=== PATIENT | female | born 1950 | race Caucasian/White ===

== ENCOUNTER → 2017-07-04 | Outpatient (CLI) | payer MEDICARE ==
[~2017-07-04] MED LIST: COZAAR100 MG PO; HYZAAR 50-12.1 UDTAB PO; INSLANT; JANUMET 500 MG-1 TA1; LIPITOR 40MG TA40 MG PO
== END ==
LOC: COL.RAD 07:42
DX: C20 Malignant neoplasm of rectum (principal); C22.9 Malignant neoplasm of liver, not specified as primary or secondary; K76.89 Other specified diseases of liver
CPT/HCPCS: A9585

== ENCOUNTER → 2017-10-03 | Outpatient (CLI) | payer MEDICARE | LOC: MC.RAD 08:10 | DX: Z12.31 Encounter for screening mammogram for malignant neoplasm of breast (principal) ==

== ENCOUNTER → 2018-09-16 | Outpatient (CLI) | payer MEDICARE | LOC: MC.RAD 08:40 | DX: Z12.31 Encounter for screening mammogram for malignant neoplasm of breast (principal) ==

== ENCOUNTER → 2018-10-09 | Outpatient (CLI) | payer MEDICARE | LOC: MC.RAD 09:06 | DX: Z12.31 Encounter for screening mammogram for malignant neoplasm of breast (principal) ==

== ENCOUNTER → 2019-11-30 | Outpatient (CLI) | payer MEDICARE | LOC: MC.RAD 11:26 | DX: Z12.31 Encounter for screening mammogram for malignant neoplasm of breast (principal) ==

== ENCOUNTER → 2020-03-08 | Outpatient (CLI) | payer MEDICARE | LOC: COL.RAD 08:22 | DX: C20 Malignant neoplasm of rectum (principal); R91.8 Other nonspecific abnormal finding of lung field | CPT/HCPCS: Q9967 ==

== ENCOUNTER → 2020-07-01 | Outpatient (CLI) | payer MEDICARE | LOC: COL.RAD 09:48 | DX: C20 Malignant neoplasm of rectum (principal); R51 Headache; R20.2 Paresthesia of skin | CPT/HCPCS: A9585 ==

== ENCOUNTER 2020-12-16 14:57 | Inpatient (IN) | payer MEDICARE ==
[~2020-12-16] VITALS: Ht 167.6 cm; Wt 80.0 kg
[2020-12-16] MEDS ORDERED: NORVASC 5MG5 MG/TAB PO (15:22)
[2020-12-16] MEDS ORDERED: HCTZ12.5TAB PO (15:22)
[2020-12-16] MEDS ORDERED: GLUCOPHAGE850 MG/TAB PO (15:23)
[2020-12-16] MEDS ORDERED: LIPITOR 10MG10 MG PO (15:23)
[2020-12-16] MEDS ORDERED: AVAPRO TAB150 MG/TAB PO (15:24)
[2020-12-16] MEDS ORDERED: ZOFRAN ODT8 MG PO (15:24)
[2020-12-16] MEDS ORDERED: NORCO 325 MG-51 TAB PO (15:24)
[2020-12-16] MEDS ORDERED: MAG-OX 400400 MG/TAB PO (15:25)
[2020-12-16] MEDS ORDERED: DOXYCYCLINE 10100 MG PO (15:26)
[2020-12-16 15:50] LABS: COLLECTION METHOD CLEAN CATCH
[2020-12-16 15:55] LABS: BASO % 0.1 % (0.0-2.0); GRAN # 11.3 (1.4-6.5); GRAN % 84.1 % (42.2-75.2); HEMOGLOBIN 12.2 g/dl (12.5-16.0); LYMPH % 7.7 % (20.0-51.0); MEAN CELL VOLUME 87 fl (80.0-100.0); MEAN CORPUSCULAR HEMOGLOBIN 29 pg (27.0-31.0); MEAN CORPUSCULAR HGB CONC 33 g/dl (33.0-37.0); MEAN PLATELET VOLUME 9.4 fl (7.4-10.4); MONO # 0.9 (0.1-0.6); PLATELET COUNT 282 K/mm3 (130-400); RED BLOOD COUNT 4.24 M/mm3 (4.10-5.30); REDCELL DISTRIBUTION WIDTH-CV 13.8 % (11.5-14.5)
[2020-12-16 15:56] LABS: HEMATOCRIT 36.9 % (37.0-47.0)
[2020-12-16 16:07] LABS: MUCOUS Present /lpf; PH 5 (5-8); SQUAMOUS EPITHELIAL 0-2 /hpf; URINE APPEARANCE Hazy; URINE BACTERIA None Seen /hpf; URINE BILIRUBIN Negative (NEGATIVE); URINE BLOOD 1+ (NEGATIVE); URINE COLOR Yellow; URINE GLUCOSE 2+ (NEGATIVE); URINE KETONE 1+ (NEGATIVE); URINE LEUKOCYTE ESTERASE Trace (NEGATIVE); URINE NITRATE Negative (NEGATIVE); URINE PROTEIN(semi-quant) 2+ (NEGATIVE); URINE UROBILINOGEN Negative (NEGATIVE)
[2020-12-16 16:14] LABS: ALANINE AMINOTRANSFERASE 17 U/L (4-34); ALBUMIN 3.7 gm/dL (3.5-5.0); ALKALINE PHOSPHATASE 119 U/L (50-136); ANION GAP 7 mmol/L (7-16); AST,SGOT 28 U/L (15-37); BLOOD UREA NITROGEN 29 mg/dL (7-17); CALCIUM 8.9 mg/dL (8.4-10.2); CARBON DIOXIDE 29 mmol/L (22-30); CHLORIDE 98 mmol/L (98-107); CREATININE, serum 0.73 (0.52-1.25); GLUCOSE 184 mg/dL (74-106); LIPASE 48 U/L (23-300); POTASSIUM 3.9 mmol/L (3.4-5.0); SODIUM 133 mmol/L (137-145); TOTAL PROTEIN 6.4 gm/dL (6.4-8.2)
[2020-12-16 16:15] LABS: C-REACTIVE PROTEIN < 0.5 mg/dL (0.0-0.9)
--- NOTE | 2020-12-16 18:30 | NUR ---
PT ASMITTED TO ROOM 342 FROM ER. REPORT PROVIDE FROM KAYLEE MCKOY RN. PT ORIENTED TO ROOM. REVIEWED PLAN OF CARE. PT RESTING IN BED. TRANSIENT NAUSEA. STARTED NS TO IV RT AC AT 100CC/HR. HAD NAUSEA THEN VOMITED. FELT RELIEF. ABD SOFT VERY HYPOACTIVE BS. CALL LIGHT IN REACH.
--- NOTE | 2020-12-16 19:54 | NUR ---
VOMITED MOD AMT EMESIS. GAVE ZOFRAN. STARTED NS AT 100CC.
[2020-12-16 20:17] VITALS: BP 156/62; PULSE 65; TEMP 98
[2020-12-16 23:21] VITALS: BP 162/64; PULSE 60; TEMP 98.5
--- NOTE | 2020-12-16 23:36 | NUR ---
BP 160 SYS. NO APRESOLINE NEEDED AT THIS TIME.
--- NOTE | 2020-12-16 23:51 | NUR ---
PT VOMITED AGAIN. CLEANED UP PT. TOO SOON FOR ZOFRAN.
--- NOTE | 2020-12-17 00:40 | NUR ---
NEW ORDER FOR PHENERGAN IV. SEE MAR. GIVEN FOE UNRELIEVED N/V.
--- NOTE | 2020-12-17 01:45 | NUR ---
PT VOMITED AGAIN. DARK GREEN EMESIS SM AMT.
--- NOTE | 2020-12-17 02:18 | NUR ---
PT STILL HAVING TRANSIENT NAUSEA. TRYING TO SLEEP. STARTED MAGNESIUM REPLACEMENT ORDERED. MAG LEVEL EARLIER 1.2
[2020-12-17 03:31] VITALS: BP 143/54; PULSE 64; TEMP 97.6
[2020-12-17 06:53] LABS: BASO % 0.1 % (0.0-2.0); GRAN # 8.7 (1.4-6.5); GRAN % 86.2 % (42.2-75.2); HEMOGLOBIN 11.4 g/dl (12.5-16.0); LYMPH # 0.7 (1.2-3.4); LYMPH % 6.8 % (20.0-51.0); MEAN CELL VOLUME 87 fl (80.0-100.0); MEAN CORPUSCULAR HEMOGLOBIN 29 pg (27.0-31.0); MEAN CORPUSCULAR HGB CONC 33 g/dl (33.0-37.0); MEAN PLATELET VOLUME 9.9 fl (7.4-10.4); MONO # 0.6 (0.1-0.6); PLATELET COUNT 249 K/mm3 (130-400); RED BLOOD COUNT 3.96 M/mm3 (4.10-5.30); REDCELL DISTRIBUTION WIDTH-CV 13.7 % (11.5-14.5)
[2020-12-17 06:59] LABS: HEMATOCRIT 34.6 % (37.0-47.0)
[2020-12-17 07:07] LABS: ALBUMIN 3.4 gm/dL (3.5-5.0); BILIRUBIN,TOTAL 0.9 mg/dL (0.0-1.0); CALCIUM 8.3 mg/dL (8.4-10.2); CREATININE, serum 0.71 (0.52-1.25); MAGNESIUM 2.8 mg/dL (1.6-2.3); POTASSIUM 3.9 mmol/L (3.4-5.0); TOTAL PROTEIN 5.9 gm/dL (6.4-8.2)
[2020-12-17 07:12] VITALS: BP 147/55; PULSE 64; TEMP 97.6
--- NOTE | 2020-12-17 10:21 | NUR ---
PATRICIA met with patient to discuss discharge planning. Patient lives at home in [place] with Sarbjit (P# [phone] or [phone]). Sarbjit is patient's DPOA. Per patient report, Dr. Francois's office should have documentation. Patient's PCP is Dr. Francois, and she uses [facility] for pharmacy needs. Patient is independent with ADLS and requires no DME at this time. Plan is to return home with . Patient may need assistance after surgery and home health was discussed. Patient has not used home health in the past, and she would like to wait until after her surgery to decide if/where she would like services. Patient denies any questions or concerns at this time. Social work will continue to follow.
[2020-12-17 11:10] VITALS: BP 151/54; PULSE 83; TEMP 97.6
[2020-12-17 15:45] VITALS: BP 145/52; PULSE 64; TEMP 98.9
--- NOTE | 2020-12-17 17:43 | NUR ---
Patient has been doing well today. She slept most the day. No nauesa, denies pain. Still has not passed flatus or had a bowel movement. She got up to the shower this morning. No other changes at this time. Call light within reach.
[2020-12-17 19:24] VITALS: BP 154/56; PULSE 63; TEMP 98
--- NOTE | 2020-12-17 19:35 | NUR ---
PT RESTING IN BED WITH SEVERAL COVERS ON. NS INFUSING AT 100ML/HR THRU UPPER L CHEST PORT. REFUSES SCD'S. DENIES NAUSEA AT THIS TIME. ICE CHIPS IN CUP ON BEDSIDE TABLE. PT REPORTS TAKING CHIPS SLOWLY. PASSING NO GAS. CALL LIGHT IN REACH. BED ALARM ON.
--- NOTE | 2020-12-17 20:30 | NUR ---
PT RESTING QUIETLY IN BED. STATES SHE FELT A LITTLE NAUSEATED BUT KIND OF SUBSIDED. OFFERED ZOFRAN BUT WILL WAIT TO SEE IF IT WILL GO AWAY. NO OTHER C/O OFFERED. CALL LIGHT IN REACH.
--- NOTE | 2020-12-17 23:24 | NUR ---
PT RESTING SUPINE IN BED. STATES SHE HAD FELT A LITTLE NAUSEATED BUT SOME BETTER NOW. WILL CONTINUE TO MONITOR. CALL LIGHT AT SIDE.
[2020-12-18 00:02] VITALS: BP 150/59; PULSE 66; TEMP 98.7
[2020-12-18 03:45] VITALS: BP 161/60; PULSE 64; TEMP 98.8
--- NOTE | 2020-12-18 05:59 | NUR ---
PT UP TO BATHROOM WITH STAND BY ASSIST. TOLERATES WELL. DENIES ANY NAUSEA. UNSURE IF SHE IS PASSING MUCH GAS. BLOOD DRAWN FROM PORT FOR LAB. NO C/O OFFERED. CALL LIGHT IN REACH. BED ALARM ON. 6AM BLOOD SUGAR 142.
[2020-12-18 06:22] LABS: BASO % 0.1 % (0.0-2.0); GRAN # 5.9 (1.4-6.5); GRAN % 80.5 % (42.2-75.2); LYMPH # 0.9 (1.2-3.4); LYMPH % 12.1 % (20.0-51.0); MEAN CELL VOLUME 88 fl (80.0-100.0); MEAN CORPUSCULAR HGB CONC 33 g/dl (33.0-37.0); MONO # 0.5 (0.1-0.6); MONO % 6.3 % (1.7-9.3); PLATELET COUNT 221 K/mm3 (130-400); RED BLOOD COUNT 3.39 M/mm3 (4.10-5.30); REDCELL DISTRIBUTION WIDTH-CV 13.9 % (11.5-14.5)
[2020-12-18 06:29] LABS: HEMATOCRIT 29.9 % (37.0-47.0); HEMOGLOBIN 9.9 g/dl (12.5-16.0); MEAN CORPUSCULAR HEMOGLOBIN 29 pg (27.0-31.0)
[2020-12-18 06:31] LABS: CALCIUM 7.8 mg/dL (8.4-10.2); CREATININE, serum 0.65 (0.52-1.25); MAGNESIUM 1.6 mg/dL (1.6-2.3); POTASSIUM 3.5 mmol/L (3.4-5.0)
[2020-12-18 07:47] VITALS: BP 154/55; PULSE 59; TEMP 98
--- NOTE | 2020-12-18 08:00 | NUR ---
DR.DOERING CARTER, SEE ORDERS TO ADVANCE DIET TO CLEARS. PATIENT WAS DIRECTED TO TAKE IN LIQUIDS SLOW AND AMBULATE SEVERAL TIMES TODAY. HEAD TO TOE ASSESSMENT COMPLETE. ABD IS ROUND, SOFT AND WITH HYPO BOWL SOUNDS. PATIENT REPORTS SOME GAS LAST NIGHT. NO C/O N/V THIS AM. IV FLUIDS INFUSING INTO LEFT PORT VIA PUMP. AM BWAS WAS 142. VSS. CALL LIGHT IN REACH. NO OTHER NEEDS.
--- NOTE | 2020-12-18 09:30 | NUR ---
PATIENT AMBULATING OUT IN HALLS WITH NURSING. AMBULATED OVER 200 FEET. GAIT STEADY. TOLERATED ACTIVITY WELL.
--- NOTE | 2020-12-18 10:10 | NUR ---
SW met with patient to determine her wishes for home health services. Patient reports that, at this time, she does not want home health services. If the situation changes, patient understands that SW will return to assist her with placement choices. Social work will continue to follow for changes in care plan pending possible surgery.
[2020-12-18 11:34] VITALS: BP 165/56; PULSE 61; TEMP 97.7
--- NOTE | 2020-12-18 14:30 | NUR ---
PATIENT AMBULATING IN HALLWAYS WITH PRIMER EXPEDITOR AND DRIER. GAIT STEADY AND PATIENT TOLERATED ACTIVITY WELL.
[2020-12-18 16:05] VITALS: BP 168/65; PULSE 67; TEMP 98
--- NOTE | 2020-12-18 17:30 | NUR ---
PATIENT IS TOLERTATING CLEARS WITHOUT C/O NAUSEA. PATIENT REPORTS SHE HASN'T PASSED ANY MORE GAS. AMBULATED IN HALLS AGAIN WITH NURSING.
[2020-12-18 18:23] LABS: HEMOGLOBIN 10.2 g/dl (12.5-16.0)
[2020-12-18 18:24] LABS: HEMATOCRIT 30.5 % (37.0-47.0)
[2020-12-18 19:30] VITALS: BP 165/63; PULSE 72; TEMP 99.3
--- NOTE | 2020-12-18 20:30 | NUR ---
PT RESTING IN BED. SOMEWHAT WITHDRAWN. PT C/O BILAT MID ABD PAIN LEVEL 5-6/10. SHIFT ASSESSMNET COMPLETED. SEE MAR FOR DILAUDID GIVEN. DENIES NEED FOR NAUSEA MED AT THIS TIME. WILL AMB IN [place] ONE MORE TIME TONIGHT. 4/4 TIMES TODAY. CALL LIGHT IN REACH.
[2020-12-19] VITALS (12 sets, daily range): BP systolic 128–174; BP diastolic 51–69; PULSE 54–77; TEMP 97.3–98.6
[2020-12-19 07:08] LABS: CALCIUM 7.6 mg/dL (8.4-10.2); CREATININE, serum 0.52 (0.52-1.25); HEMOGLOBIN 10.7 g/dl (12.5-16.0); MEAN CELL VOLUME 89 fl (80.0-100.0); MEAN CORPUSCULAR HEMOGLOBIN 29 pg (27.0-31.0); MEAN CORPUSCULAR HGB CONC 33 g/dl (33.0-37.0); MEAN PLATELET VOLUME 10.1 fl (7.4-10.4); PLATELET COUNT 242 K/mm3 (130-400); POTASSIUM 3.4 mmol/L (3.4-5.0); REDCELL DISTRIBUTION WIDTH-CV 13.8 % (11.5-14.5)
[2020-12-19 07:28] LABS: HEMATOCRIT 32.8 % (37.0-47.0)
--- NOTE | 2020-12-19 07:53 | NUR ---
Patient resting in bed, call light in reach and bed alarm set. Patient is on a CLD due to small bowel obstruction. Pain 3/10 and given dilauded prior to breakfast. Patient has a firm abdomen, not passing gas and all abdominal quads are active. See new orders per Dr. Baig.
[2020-12-19 08:12] LABS: BAND 1 % (0-10); LYMPHOCYTE 6 % (20.0-51.0); METAMYELOCYTE 1 % (0-0); NEUTROPHILS 86 % (42.0-75.2); PLATELET ESTIMATE NORMAL (NORMAL)
[2020-12-19 08:14] LABS: TOXIC GRANULATION PRESENT
--- NOTE | 2020-12-19 13:07 | NUR ---
Patient just left to go down for surgery. She last drank apple juice at 8:00 AM and had 1/2 of her sherbert before she was made NPO to go down for her morning CT of abdomen and pelvis. Patient used the bathroom prior to going down for surgery and was given a new gown.
--- NOTE | 2020-12-19 14:26 | NUR ---
Oxidation Engineer attended clinical rounds and patient to have surgery today. SW will continue to follow for discharge needs.
--- NOTE | 2020-12-19 16:15 | NUR ---
Patient returned from her surgery. Resting in bed on Room Air somfortable at this time. Will continue to monitor.
--- NOTE | 2020-12-19 19:44 | NUR ---
Resting in bed. Assessment complete. Lungs clear. Heart sounds normal. Bowels active x4. Passing flatus. Pulses present throughout. No edema noted. INT right external jugular without complications. PAC to left chest infusing without complications. X4 lap sites CDI. Denies pain. Denies needs. Call light in reach. SCDs in place.
--- NOTE | 2020-12-19 19:55 | NUR ---
Patient resting in bed, call light in reach and bed alarm set. She has urinated 200 ml prior to her returning to bed. She was given dilauded to help with pain control. Patient denies any questions at this time.
--- NOTE | 2020-12-20 00:16 | NUR ---
Up to restroom and returned to bed. Denies pain. Denies needs. Call light in reach.
[2020-12-20 00:17] VITALS: BP 135/62; PULSE 71; TEMP 97.4
--- NOTE | 2020-12-20 01:57 | NUR ---
Resting in bed asleep. Call light in reach.
--- NOTE | 2020-12-20 03:50 | NUR ---
Resting in bed. Denies needs. Call light in reach.
[2020-12-20 04:42] VITALS: BP 128/61; PULSE 71; TEMP 98.7
--- NOTE | 2020-12-20 05:47 | NUR ---
Patient had uneventful night. Resting in bed this AM. Call light in reach.
--- NOTE | 2020-12-20 06:58 | NUR ---
Report given to ADRIANA Rodrigues
--- NOTE | 2020-12-20 07:02 | NUR ---
Patient lying in bed, call light in reach and bed alarm set. Patient Alert and talkative this morning. This nurse received report from night nurse. Will continue to monitor.
[2020-12-20 07:50] LABS: BASO % 0.1 % (0.0-2.0); EOS # 0.2 (0.0-0.7); EOS % 2.1 % (0-4.0); GRAN # 6.2 (1.4-6.5); GRAN % 71.1 % (42.2-75.2); HEMOGLOBIN 10.6 g/dl (12.5-16.0); LYMPH # 1.6 (1.2-3.4); LYMPH % 18.2 % (20.0-51.0); MEAN CELL VOLUME 89 fl (80.0-100.0); MEAN CORPUSCULAR HEMOGLOBIN 29 pg (27.0-31.0); MEAN CORPUSCULAR HGB CONC 33 g/dl (33.0-37.0); MEAN PLATELET VOLUME 10.1 fl (7.4-10.4); MONO # 0.7 (0.1-0.6); MONO % 7.6 % (1.7-9.3); PLATELET COUNT 237 K/mm3 (130-400); RED BLOOD COUNT 3.64 M/mm3 (4.10-5.30); REDCELL DISTRIBUTION WIDTH-CV 13.8 % (11.5-14.5)
[2020-12-20 07:54] VITALS: BP 124/64; PULSE 87; TEMP 97.5
[2020-12-20 07:56] LABS: HEMATOCRIT 32.2 % (37.0-47.0)
[2020-12-20 07:57] LABS: CALCIUM 6.9 mg/dL (8.4-10.2); CREATININE, serum 0.53 (0.52-1.25)
[2020-12-20 08:07] LABS: POTASSIUM 2.7 mmol/L (3.4-5.0)
--- NOTE | 2020-12-20 08:21 | NUR ---
Received call from lab with Potassium critical value of which was called to Dr. Mclean. He ordered patient to be put on potassium replacement protocol. This was ordered.
--- NOTE | 2020-12-20 08:59 | NUR ---
Patient resting in bed, call light in reach and bed alarm set. Patient denies any questions at this time.
[2020-12-20 11:44] VITALS: BP 120/61; PULSE 78; TEMP 98.4
--- NOTE | 2020-12-20 15:14 | NUR ---
Addiction Treatment Counselor collaborated with RNLilia who advised patient's gait has been fine but has needed some assistance due to pain. SW will continue to follow.
[2020-12-20 16:16] VITALS: BP 113/58; PULSE 72; TEMP 98.7
[2020-12-20 19:23] VITALS: BP 107/54; PULSE 72; TEMP 98.6
--- NOTE | 2020-12-20 19:35 | NUR ---
Resting in bed. Assessment complete. Base bilaterally diminished otherwise clear. Heart sounds normal. Bowels active x4. Pulses present throughout. Bilaterally lower extremity edema +2. Right EJ free on complications. Left PAC infusing without complications. x4 lap sites CDI. Denies pain. Denies needs. Call light in reach.
--- NOTE | 2020-12-20 22:09 | NUR ---
Up to restroom and returned to bed. Denies needs. Call light in reach.
--- NOTE | 2020-12-20 23:38 | NUR ---
Resting in bed. Denies needs. Call light in reach.
[2020-12-21 00:15] VITALS: BP 123/66; PULSE 73; TEMP 98.1
--- NOTE | 2020-12-21 00:15 | NUR ---
Patient reported ABD pain after eating snack. Given PRN norco at patient request.
--- NOTE | 2020-12-21 02:10 | NUR ---
Resting in bed. Denies needs. Call light in reach.
[2020-12-21 03:22] VITALS: BP 114/59; PULSE 67; TEMP 97.9
--- NOTE | 2020-12-21 06:04 | NUR ---
Patient required norco for pain control during night. Otherwise uneventful night. Resting in bed this AM. Call light in reach.
[2020-12-21 07:13] VITALS: BP 108/52; PULSE 70; TEMP 98.7
--- NOTE | 2020-12-21 07:14 | NUR ---
Report given to ADRIANA Shane
[2020-12-21 08:33] LABS: BASO % 0.3 % (0.0-2.0); EOS # 0.3 (0.0-0.7); EOS % 3.8 % (0-4.0); GRAN # 5.5 (1.4-6.5); GRAN % 73.1 % (42.2-75.2); HEMOGLOBIN 10.3 g/dl (12.5-16.0); LYMPH # 1.1 (1.2-3.4); LYMPH % 14.8 % (20.0-51.0); MEAN CELL VOLUME 88 fl (80.0-100.0); MEAN CORPUSCULAR HEMOGLOBIN 29 pg (27.0-31.0); MEAN CORPUSCULAR HGB CONC 34 g/dl (33.0-37.0); MEAN PLATELET VOLUME 9.6 fl (7.4-10.4); MONO # 0.5 (0.1-0.6); MONO % 7.2 % (1.7-9.3); PLATELET COUNT 211 K/mm3 (130-400); RED BLOOD COUNT 3.51 M/mm3 (4.10-5.30); REDCELL DISTRIBUTION WIDTH-CV 13.9 % (11.5-14.5)
[2020-12-21 08:34] LABS: HEMATOCRIT 30.7 % (37.0-47.0)
[2020-12-21 09:34] LABS: CALCIUM 7.1 mg/dL (8.4-10.2); CREATININE, serum 0.51 (0.52-1.25); POTASSIUM 3.9 mmol/L (3.4-5.0)
--- NOTE | 2020-12-21 11:00 | NUR ---
Patient alert and oriented, answers questions appropriately. See assessment. Abdomen soft, non tender, non distended. Bowel sounds active x4 quads. +Flatus. Lap sites to abdomen with edges well approximated, no redness or drainage noted. Post op exercises reviewed with patient. No c/o at this time.
[2020-12-21 11:50] VITALS: BP 113/59; PULSE 86; TEMP 98.3
[2020-12-21 16:33] VITALS: BP 114/59; PULSE 85; TEMP 98.7
--- NOTE | 2020-12-21 19:21 | NUR ---
Resting in bed. Assessment complete. Bases bilaterally diminished otherwise clear. Heart sounds normal. Bowels active x4. Pulses present throughout. Bilateral lower extremity edema +2. INT right EJ without compications. PAC to left chest without complications. Lap sites to ABD CDI. Denies pain. Denies needs at this time. Call light in reach.
[2020-12-21 19:58] VITALS: BP 123/58; PULSE 88; TEMP 98.8
[2020-12-22 00:13] VITALS: BP 114/59; PULSE 95; TEMP 98.3
--- NOTE | 2020-12-22 02:58 | NUR ---
Reports 5/10 ABD pain. Provided with PRN norco. Will monitor.
[2020-12-22 04:20] VITALS: BP 110/48; PULSE 90; TEMP 98.2
--- NOTE | 2020-12-22 05:13 | NUR ---
Patient required x1 dose of norco for pain control during night. Otherwise uneventful night. Resting in bed this AM. Call light in reach.
[2020-12-22 06:43] LABS: BASO % 0.2 % (0.0-2.0); EOS # 0.1 (0.0-0.7); EOS % 0.7 % (0-4.0); GRAN # 8.3 (1.4-6.5); GRAN % 87.1 % (42.2-75.2); HEMOGLOBIN 10.5 g/dl (12.5-16.0); LYMPH # 0.6 (1.2-3.4); LYMPH % 6.7 % (20.0-51.0); MEAN CELL VOLUME 88 fl (80.0-100.0); MEAN CORPUSCULAR HEMOGLOBIN 29 pg (27.0-31.0); MEAN CORPUSCULAR HGB CONC 33 g/dl (33.0-37.0); MEAN PLATELET VOLUME 10.7 fl (7.4-10.4); MONO # 0.4 (0.1-0.6); MONO % 4.5 % (1.7-9.3); PLATELET COUNT 233 K/mm3 (130-400); RED BLOOD COUNT 3.65 M/mm3 (4.10-5.30)
[2020-12-22 06:47] LABS: HEMATOCRIT 32.1 % (37.0-47.0)
--- NOTE | 2020-12-22 06:47 | NUR ---
Report given to ADRIANA Chapa
[2020-12-22 06:53] LABS: CALCIUM 7.5 mg/dL (8.4-10.2); CREATININE, serum 0.51 (0.52-1.25); MAGNESIUM 1.1 mg/dL (1.6-2.3); POTASSIUM 3.9 mmol/L (3.4-5.0)
--- NOTE | 2020-12-22 07:11 | NUR ---
PT RESTING IN BED AT BEDSIDE SHIFT REPORT. IND TO BATHROOM, BED IN LOW, CALL LIGHT WITHIN REACH. STATES SHE IS FEELING BETTER THEN LAST NIGHT, WAS HAVING ABD PAIN LAST NIGHT.
[2020-12-22 07:45] VITALS: BP 98/68; PULSE 79; TEMP 98.7
--- NOTE | 2020-12-22 12:38 | NUR ---
PT REPORTED A PAIN LEVEL OF 3 OUT OF 10 AT REST WHICH INCREASED WITH MOVEMENT. PT FELT SHE NEEDED SOME PAIN MEDICATION PRIOR TO DISCHARGE, RECEIEVED PRN NORCO. PT WAS INCONTINENT OF BOWEL WHEN ASSISTED TO BATHROOM. DID NEED SOME ASSISTANCE CLEANING SMITA AREA. PT WAS DRESSED AND BELONGINGS GATHERED BY THIS NURSE. HOME MEDICATIONS BROUGHT UP FROM PHARMACY. PT HEALTHY SUMMARY, DISCHARGE SUMMARY , AND HOME MEDS PRINTED AND REVIEWED WITH PT. STRESSED IMPORTANCE OF FU APPTS. REVIEWED MEDICATIONS AND VERIFIED NORCO PRESCRIPTION AT PHARMACY OF CHOICE. PT TRANSPORTED VIA WC BY HUMAN SERVICES SUPERVISOR AND SEATBELTED FOR RIDE HOME. PT AND RELATION DENIED QUESTIONS.
--- NOTE | 2020-12-22 12:44 | NUR ---
UA WAS UNABLE TO BE COLLECTED PRIOR TO DISCHARGE.
== END 2020-12-22 11:30 | disposition home or self-care (01) | DRG 336 ==
LOC: COL.ER 14:57 → SURG 17:41
PROVIDERS: Physician Assistant; Student in an Organized Health Care Education/Training Program; Surgery; ADMIT Hospitalist
PROC: 8E0W4CZ Robotic Assisted Procedure of Trunk Region, Percutaneous Endoscopic Approach (ICD-10-PCS; 2020-12-19)
PROC: 0DN84ZZ Release Small Intestine, Percutaneous Endoscopic Approach (ICD-10-PCS; principal; 2020-12-19 13:00)
DX: C20 Malignant neoplasm of rectum (principal); K56.50 Intestinal adhesions [bands], unspecified as to partial versus complete obstruction; R18.0 Malignant ascites; C78.7 Secondary malignant neoplasm of liver and intrahepatic bile duct; C78.00 Secondary malignant neoplasm of unspecified lung; N39.0 Urinary tract infection, site not specified; E87.1 Hypo-osmolality and hyponatremia; E78.5 Hyperlipidemia, unspecified; D64.9 Anemia, unspecified; E11.9 Type 2 diabetes mellitus without complications; Z79.84 Long term (current) use of oral hypoglycemic drugs; Z93.3 Colostomy status; E83.42 Hypomagnesemia; E87.6 Hypokalemia
CPT/HCPCS: OP; 99223-AI; 99231-AI; 99232-AI; 99233-AI; 99239; A4314; G0378; J0330; J0696; J1170; J1650; J1815; J2405; J2550; J2704; J3010; J3475; J3480; J7030; Q9967

== ENCOUNTER → 2021-01-05 | Outpatient (CLI) | payer MEDICARE ==
[~2021-01-05] MED LIST changes: +AVAPRO TAB150 MG/TAB PO; +DOXYCYCLINE 10100 MG PO; +GLUCOPHAGE850 MG/TAB PO; +HCTZ12.5TAB PO; +LIPITOR 10MG10 MG PO; +MAG-OX 400400 MG/TAB PO; +NORCO 325 MG-51 TAB PO; +NORVASC 5MG5 MG/TAB PO; +ZOFRAN ODT8 MG PO
== END ==
LOC: COL.VAS 13:48
DX: C20 Malignant neoplasm of rectum (principal); C78.7 Secondary malignant neoplasm of liver and intrahepatic bile duct; M79.89 Other specified soft tissue disorders

== ENCOUNTER → 2021-06-09 | Outpatient (CLI) | payer MEDICARE | LOC: COL.RAD 07:19 | DX: C34.30 Malignant neoplasm of lower lobe, unspecified bronchus or lung (principal); C22.9 Malignant neoplasm of liver, not specified as primary or secondary; R59.9 Enlarged lymph nodes, unspecified; C20 Malignant neoplasm of rectum; Z90.49 Acquired absence of other specified parts of digestive tract | CPT/HCPCS: Q9967 ==

== ENCOUNTER → 2021-10-11 | Outpatient (CLI) | payer MEDICARE | LOC: MC.RAD 11:07 | DX: Z12.31 Encounter for screening mammogram for malignant neoplasm of breast (principal) ==

== ENCOUNTER 2022-05-17 09:41 | Emergency (ER) | payer MEDICARE ==
[~2022-05-17] VITALS: Ht 167.6 cm; Wt 63.6 kg
[2022-05-17 10:30] VITALS: TEMP 97.4
[2022-05-17 11:20] LABS: BASO # 0.1 K/mm3 (0.0-0.2); BASO % 0.6 % (0.0-2.0); EOS # 0.1 K/mm3 (0.0-0.7); EOS % 0.5 % (0.0-4.0); GRAN # 7.7 K/mm3 (1.4-6.5); HEMATOCRIT 38.8 % (37.0-47.0); LYMPH # 0.8 K/mm3 (1.2-3.4); LYMPH % 8.4 % (20.0-51.0); MEAN CELL VOLUME 80 fl (80.0-100.0); MEAN CORPUSCULAR HEMOGLOBIN 25 pg (27-31); MEAN CORPUSCULAR HGB CONC 31 g/dl (33.0-37.0); MEAN PLATELET VOLUME 9.1 fl (7.4-10.4); MONO # 0.7 K/mm3 (0.1-0.6); MONO % 7.8 % (1.7-9.3); PLATELET COUNT 304 K/mm3 (130-400); RED BLOOD COUNT 4.83 M/mm3 (4.10-5.30)
[2022-05-17 11:34] LABS: ALBUMIN 2.7 gm/dL (3.4-4.8); BILIRUBIN,TOTAL 1.8 mg/dL (0.2-1.2); C-REACTIVE PROTEIN 7.37 mg/dL (0.00-0.50); CREATININE, serum 0.95 mg/dL (0.57-1.11); POTASSIUM 4.2 mmol/L (3.5-4.5); TOTAL PROTEIN 6.7 gm/dL (6.2-8.1)
[2022-05-17] MEDS ORDERED: GLUCOPHAGE500 MG/TAB PO (11:56)
[2022-05-17 13:19] LABS: INR 1.4 (0.8-3.0); PROTHROMBIN TIME 16.2 SECONDS (9.7-12.8)
[2022-05-17 14:44] LABS: COLLECTION METHOD CLEAN CATCH
[2022-05-17 15:02] LABS: MUCOUS Present (NOT PRESENT); PH 5 (5-8); SQUAMOUS EPITHELIAL 0-2 /hpf (0-10); URINE APPEARANCE Clear (CLEAR/HAZY); URINE BACTERIA None Seen /hpf (NONE SEEN); URINE BILIRUBIN Negative (NEGATIVE); URINE BLOOD Negative (NEGATIVE); URINE COLOR Yellow (YELLOW); URINE GLUCOSE 2+ (NEGATIVE); URINE KETONE 2+ (NEGATIVE); URINE LEUKOCYTE ESTERASE Negative (NEGATIVE); URINE NITRATE Negative (NEGATIVE); URINE PROTEIN(semi-quant) Negative (NEGATIVE)
[2022-05-17 17:04] VITALS: BP 132/83; PULSE 81
== END 2022-05-17 17:06 | disposition home or self-care (01) ==
LOC: COL.ER 09:41
PROVIDERS: Family Medicine
DX: J90 Pleural effusion, not elsewhere classified (principal); C78.7 Secondary malignant neoplasm of liver and intrahepatic bile duct; C18.9 Malignant neoplasm of colon, unspecified
CPT/HCPCS: J2405; J7120; Q9967

== ENCOUNTER 2022-06-01 14:45 | Emergency (ER) | payer MEDICARE ==
[~2022-06-01] VITALS: Ht 167.6 cm; Wt 63.6 kg
[~2022-06-01 14:45] MED LIST changes: +GLUCOPHAGE500 MG/TAB PO
[2022-06-01 15:05] VITALS: TEMP 97.6
[2022-06-01 16:20] LABS: BASO # 0.1 K/mm3 (0.0-0.2); BASO % 0.6 % (0.0-2.0); EOS % 0.2 % (0.0-4.0); GRAN # 8.9 K/mm3 (1.4-6.5); GRAN % 85.5 % (42.2-75.2); HEMATOCRIT 40.2 % (37.0-47.0); HEMOGLOBIN 12.3 g/dl (12.5-16.0); LYMPH # 0.6 K/mm3 (1.2-3.4); LYMPH % 6.1 % (20.0-51.0); MEAN CELL VOLUME 80 fl (80.0-100.0); MEAN CORPUSCULAR HEMOGLOBIN 25 pg (27-31); MEAN CORPUSCULAR HGB CONC 31 g/dl (33.0-37.0); MONO # 0.7 K/mm3 (0.1-0.6); MONO % 6.9 % (1.7-9.3); PLATELET COUNT 300 K/mm3 (130-400); RED BLOOD COUNT 5.03 M/mm3 (4.10-5.30); REDCELL DISTRIBUTION WIDTH-CV 19.3 % (11.5-14.5)
[2022-06-01 16:38] LABS: ALANINE AMINOTRANSFERASE 24 U/L (0-55); ALBUMIN 2.3 gm/dL (3.4-4.8); ALKALINE PHOSPHATASE 425 U/L (40-150); ANION GAP 17 mmol/L (7-16); AST,SGOT 65 U/L (5-34); BILIRUBIN,TOTAL 2.2 mg/dL (0.2-1.2); BLOOD UREA NITROGEN 17 mg/dL (10-20); CALCIUM 8.8 mg/dL (8.4-10.2); CARBON DIOXIDE 21 mmol/L (23-31); CHLORIDE 98 mmol/L (98-107); CREATININE, serum 0.82 mg/dL (0.57-1.11); GLUCOSE 358 mg/dL (70-99); MAGNESIUM 1.6 mg/dL (1.6-2.6); POTASSIUM 4.4 mmol/L (3.5-4.5); SODIUM 136 mmol/L (136-145); TOTAL PROTEIN 6.2 gm/dL (6.2-8.1)
[2022-06-01 16:45] LABS: TROPONIN-I < 0.010 ng/mL (0.00-0.033)
[2022-06-01] MEDS ORDERED: ZOFRAN ODT4 MG PO (18:03)
[2022-06-01 18:35] VITALS: BP 165/99; PULSE 91
== END 2022-06-01 18:35 | disposition home or self-care (01) ==
LOC: COL.ER 14:45
PROVIDERS: Emergency Medicine
DX: J90 Pleural effusion, not elsewhere classified (principal); R73.9 Hyperglycemia, unspecified; E86.0 Dehydration; E87.2 Acidosis; Z20.822 Contact with and (suspected) exposure to COVID-19
CPT/HCPCS: J2405; J7030